=== PATIENT | female | born 1975 | race Caucasian/White ===

== ENCOUNTER → 2019-02-13 | Outpatient (REF) ==
--- NOTE | 2019-02-13 13:07 | REP ---
LUMBOSACRAL SPINE, THREE VIEWS: Three AP and lateral views of the lumbosacral spine performed. There is no compression fracture or malalignment with normal lumbar lordosis and no evidence of spondylolysis. There is mild diffuse spurring. Minimal disc space narrowing and subchondral sclerosis is noted at the L2-3 level. Sclerosis and spurring is seen at the posterior facets at L5-S1. The posterior elements are intact. Metallic clips are seen in the pelvis. IMPRESSION: Mild degenerative changes as above. Electronically Signed by Tung Lim MD 02/14/2019 09:28 A
--- NOTE | 2019-02-13 13:08 | REP ---
LEFT KNEE, FOUR VIEWS: Four views of the left knee are performed. There is very mild medial joint space narrowing with subchondral sclerosis. No joint effusion is seen. There is no fracture or dislocation. No intrinsic osseous pathology is seen. IMPRESSION: Very mild degenerative changes medial knee joint. Electronically Signed by Tung Lim MD 02/14/2019 09:28 A
== END ==
LOC: M SMT 10:57
PROVIDERS: ATTEND Internal Medicine
DX: Z00.00 Encounter for general adult medical examination without abnormal findings (principal)